=== PATIENT | female | born 1990 | race Caucasian/White ===

== ENCOUNTER 2022-07-16 07:56 | Day surgery (SDC) | payer OTHER ==
[~2022-07-16] VITALS: Ht 167.6 cm; Wt 109.8 kg
[~2022-07-16 07:56] MED LIST: METH10CO PO
[2022-07-16] MEDS ORDERED: LR 1,000 ML IV SCH ×3 (08:30→12:00)
[2022-07-16] MEDS ORDERED: MIDAZOLAM INJ 2MG/2ML VIAL (J2250 PER 1MG) As Ordered ONE (10:22)
[2022-07-16] MEDS ORDERED: ROCURONIUM BROMIDE 50 MG/5 ML VIAL As Ordered ONE (10:23)
[2022-07-16] MEDS ORDERED: fentaNYL 100 MCG/2 ML INJECTION As Ordered ONE (10:24)
[2022-07-16] MEDS ORDERED: dexameTHASONE 4 MG/ML 1ML VIAL (J1100 PER 1MG) As Ordered ONE ×2 (10:25→10:33)
[2022-07-16] MEDS ORDERED: LIDOCAINE 2% 100MG/5ML SDV (FOR ANES.) As Ordered ONE (10:29)
[2022-07-16] MEDS ORDERED: propofoL 200 MG/20 ML VIAL As Ordered ONE (10:33)
[2022-07-16] MEDS ORDERED: LIDOCAINE W/EPINEPHRINE 1% 20ML VIAL As Ordered ONE (10:48)
[2022-07-16] MEDS ORDERED: ACETAMINOPHEN 1000MG 100ML IV BTL (OFIRMEV) (J0131 PER 10MG) As Ordered ONE (11:06)
[2022-07-16] MEDS ORDERED: KETOROLAC 60MG 2ML VIAL As Ordered ONE (11:19)
[2022-07-16] MEDS ORDERED: SUGAMMADEX SODIUM 500 MG/5 ML VIAL (BRIDION) As Ordered ONE (11:20)
[2022-07-16] MEDS ORDERED: fentaNYL 100 MCG/2 ML INJECTION IV PRN (11:30)
[2022-07-16] MEDS ORDERED: METOCLOPRAMIDE INJ 10MG/2ML VIAL (J2765 PER 1) IV PRN (11:30)
[2022-07-16] MEDS ORDERED: oxyCODONE 5MG TAB PO PRN (11:30)
[2022-07-16] MEDS ORDERED: ONDANSETRON 4MG 2ML VIAL IV PRN (11:30)
[2022-07-16 12:45] VITALS: BP 113/69
== END 2022-07-16 12:45 | disposition home or self-care (01) ==
LOC: M SDC 07:56
PROVIDERS: ATTEND Dentist Oral and Maxillofacial Surgery
DX: K01.1 Impacted teeth (principal); F17.200 Nicotine dependence, unspecified, uncomplicated; F11.11 Opioid abuse, in remission; Z79.891 Long term (current) use of opiate analgesic; E66.9 Obesity, unspecified; Z88.8 Allergy status to other drugs, medicaments and biological substances
CPT/HCPCS: 81025; 88300; D7220; D9223; J0131; J1100; J1885; J2250; J3010